=== PATIENT | female | born 2000 | race African-American/Black ===

== ENCOUNTER 2018-09-18 21:39 | Inpatient (IN) | payer OTHER ==
[~2018-09-18] VITALS: Ht 170.2 cm; Wt 64.9 kg
[2018-09-18] MEDS ORDERED: DEXT 5%/LR + PITOCIN 20UNITS/L 1,000 ML IV SCH ×2 (21:42→22:21)
[2018-09-18] MEDS ORDERED: INFLUENZA VIRUS VACCINE(AFLURIA) 0.5ML SYR IM ONE (22:30)
[2018-09-18] MEDS ORDERED: DIPHENHYDRAMINE 25MG CAPSULE PO PRN (22:30)
[2018-09-18] MEDS ORDERED: HEMORRHOIDAL SUPP PR PRN (22:30)
[2018-09-18] MEDS ORDERED: BISACODYL 10MG SUPP PR PRN (22:30)
[2018-09-18] MEDS ORDERED: BENZOCAINE/LANOLIN/ALOE VERA SPRAY TOP PRN (22:30)
[2018-09-18] MEDS ORDERED: RHO(D) IMMUNE GLOBULIN 300 MCG/SYR IM PRN (22:30)
[2018-09-18] MEDS ORDERED: GLYCERIN/WITCH HAZEL LEAF MEDICATED PAD TOP PRN (22:30)
[2018-09-18] MEDS ORDERED: IBUPROFEN 400MG TABLET PO PRN (22:30)
[2018-09-18] MEDS ORDERED: LANOLIN OINT 0.25 GM TUBE TOP PRN (22:30)
[2018-09-18] MEDS ORDERED: TETANUS, DIPHTHERIA, PERTUSSIS VAC/PF 0.5ML (>7YR OLD) IM ONE (22:30)
[2018-09-18] MEDS: IBUPROFEN 800MG TABLET PO PRN (23:03)
[2018-09-19] VITALS (7 sets, daily range): BP systolic 103–114; BP diastolic 56–81
[2018-09-19 00:38] LABS: BASOPHILS % 0.4 % (0.0-2.0); EOSINOPHILS % 0.1 % (0.0-5.0); HEMATOCRIT. 28.9 % (36.0-48.0); HEMOGLOBIN. 9.5 g/dL (12.0-16.0); LYMPHOCYTES % 11.3 % (20.0-50.0); MEAN CORPUSCULAR HEMOGLOBIN 27.6 pg (28.0-32.0); MEAN CORPUSCULAR VOLUME 84.4 fL (81.0-99.0); MEAN PLATELET VOLUME 10.2 fl (7.4-10.4); MONOCYTES % 5.4 % (2.0-8.0); NEUTROPHILS % 82.8 % (40.0-76.0); PARTIAL THROMBOPLASTIN TIME 27.5 sec (23.4-31.0); PLATELET 163 x1000/uL (130-400); PROTHROMBIN TIME 9.9 sec (9.1-11.1); RED BLOOD CELL COUNT 3.42 mill/uL (4.2-5.4); RED CELL DISTRIBUTION WIDTH 13.6 % (11.6-14.6)
[2018-09-19 01:55] LABS: HEPATITIS B SURFACE ANTIGEN NEGATIVE
[2018-09-19 07:36] LABS: CLARITY URINE CLOUDY (CLEAR); KETONES URINE NEGATIVE (NEGATIVE); LEUKOCYTE ESTERASE URINE NEGATIVE (NEGATIVE); NITRITE URINE NEGATIVE (NEGATIVE); OCCULT BLOOD URINE 3+ (NEGATIVE); PROTEIN URINE 3+ (NEGATIVE); UROBILINOGEN URINE 0.2 E.U./dL (0.2-1.0)
[2018-09-19 07:37] LABS: COLOR URINE BLOODY (YELLOW)
[2018-09-19 07:55] LABS: *BARBITURATES SCREEN URINE NEGATIVE (NEGATIVE); *BENZODIAZEPINES SCREEN URINE NEGATIVE (NEGATIVE); *COCAINE SCREEN URINE NEGATIVE (NEGATIVE); METHADONE URINE SCREEN NEGATIVE (NEGATIVE); OPIATES URINE SCREEN NEGATIVE (NEGATIVE)
[2018-09-19 07:56] LABS: *AMPHETAMINES SCREEN URINE NEGATIVE (NEGATIVE); CANNABINOID URINE SCREEN NEGATIVE (NEGATIVE); PHENCYCLIDINE URINE SCREEN NEGATIVE (NEGATIVE)
[2018-09-19] MEDS: IBUPROFEN 800MG TABLET PO PRN (09:03)
[2018-09-19] MEDS: FERROUS SULFATE 325MG TABLET PO SCH ×3 (09:03→16:40)
[2018-09-19] MEDS: PRENATAL VIT/FE FUMARATE/FA TABLET PO SCH (09:03)
[2018-09-19] MEDS: ACETAMINOPHEN WITH CODEINE 300/30MG TABLET PO PRN (19:49)
[2018-09-19] MEDS ORDERED: DOCUSATE SODIUM 100MG CAPSULE PO SCH (21:00)
[2018-09-20] MEDS: IBUPROFEN 800MG TABLET PO PRN ×2 (01:12→09:34)
[2018-09-20 03:46] VITALS: BP 99/60
[2018-09-20] MEDS: ACETAMINOPHEN WITH CODEINE 300/30MG TABLET PO PRN (06:51)
[2018-09-20 08:00] VITALS: BP 105/70
[2018-09-20] MEDS: PRENATAL VIT/FE FUMARATE/FA TABLET PO SCH (09:34)
[2018-09-20] MEDS: FERROUS SULFATE 325MG TABLET PO SCH (09:34)
== END 2018-09-20 13:15 | disposition home or self-care (01) | DRG 776 ==
LOC: OBSVTOIN 21:39 → EDBD 21:39 → 8 EST LDRP 21:39 → 8EST 23:39
PROVIDERS: ADMIT Specialist; ATTEND Specialist
PROC: 30233S1 Transfusion of Nonautologous Globulin into Peripheral Vein, Percutaneous Approach (ICD-10-PCS; principal; 2018-09-19)
DX: O73.0 Retained placenta without hemorrhage (principal); O90.81 Anemia of the puerperium; D64.9 Anemia, unspecified; Z67.41 Type O blood, Rh negative
CPT/HCPCS: 36415; 80305; 86592; 86703; 86762; 86850; 86886; 86900; 87340; 90384; 99281; J2590

== ENCOUNTER 2025-03-31 20:42 | Emergency (ER) | payer OTHER ==
[~2025-03-31] VITALS: Ht 172.7 cm; Wt 58.9 kg
[2025-03-31 20:52] VITALS: O2SAT 100
[2025-03-31] MEDS: LIDOCAINE HCL 1% 20ML VIAL INFIL ONE (22:40)
[2025-03-31] MEDS: IBUPROFEN 600MG TABLET PO ONE (22:41)
[2025-03-31 23:02] VITALS: BP 115/72; PULSE 90; RESP 12; TEMP 37.1; O2SAT 100
[2025-03-31] MEDS ORDERED: AMOX1TAB16 MT (23:23)
[2025-03-31] MEDS ORDERED: IBUP-2029 MT (23:23)
[2025-03-31] MEDS ORDERED: BO1 TP (23:23)
[2025-03-31] MEDS ORDERED: CHLO473M2 MT (23:23)
== END 2025-03-31 23:37 | disposition left against medical advice (07) ==
LOC: ER 20:47
DX: S01.81XA Laceration without foreign body of other part of head, initial encounter (principal); S01.511A Laceration without foreign body of lip, initial encounter; Z79.899 Other long term (current) drug therapy; W01.0XXA Fall on same level from slipping, tripping and stumbling without subsequent striking against object, initial encounter; Y93.89 Activity, other specified; Y92.89 Other specified places as the place of occurrence of the external cause; Y99.8 Other external cause status
CPT/HCPCS: 99283; 12011; J2003